=== PATIENT | male | born 1955 | race Caucasian/White ===

== ENCOUNTER 2018-01-03 22:27 | Inpatient (IN) ==
[2018-01-03] MEDS ORDERED: fentaNYL Citrate Inj 100 MCG/2 ML Ampul ONE (22:32)
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
[2018-01-03 22:50] LABS: Baso # (Auto) 0.1 th/mm3 (0.0-0.2); Baso % (Auto) 0.9 % (0.0-2.0); Eos # (Auto) 0.3 th/mm3 (0.0-0.4); Hematocrit 39.1 % (39.0-51.0); Hemoglobin 13.5 gm/dL (13.0-17.0); Lymph # (Auto) 3.6 th/mm3 (1.0-4.8); Mean Corpuscular HGB Conc 34.5 % (32.0-36.0); Mean Corpuscular Hemoglobin 30.8 pg (27.0-34.0); Mean Corpuscular Volume 89.3 fL (80.0-100.0); Mean Platelet Volume 8.5 fL (7.0-11.0); Mono # (Auto) 0.7 th/mm3 (0.0-0.9); Mono % (Auto) 8.8 % (0.0-8.0); Neut # (Auto) 3.4 th/mm3 (1.8-7.7); Neut % (Auto) 42.3 % (16.0-70.0); Platelet Count 167 th/mm3 (150-450); Red Blood Count 4.38 mil/mm3 (4.50-5.90); Red Cell Distribution Width 14.3 % (11.6-17.2); White Blood Count 8.1 th/mm3 (4.0-11.0)
[2018-01-03 23:04] LABS: Activated Partial Thrombo Time 27.8 sec (24.3-30.1); INR 1.1 Ratio; Prothrombin Time 11.5 sec (9.8-11.6)
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
[2018-01-03 23:19] LABS: Calcium 8.2 mg/dL (8.5-10.1); Carbon Dioxide 24.5 meq/L (21.0-32.0)
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
[2018-01-03] MEDS ORDERED: Morphine Inj 4 MG/ML Vial IV.PUSH PRN (23:51)
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
[2018-01-04] MEDS ORDERED: Chlorhexidine Gluconate 2% 1 Pack (2 Cloths) TOPICAL PRN (04:00)
[2018-01-04] MEDS ORDERED: Chlorhexidine Gluconate 2% 1 Pack (2 Cloths) TOPICAL SCH (04:00)
[2018-01-04] MEDS ORDERED: Methocarbamol 500 MG Tablet PO SCH (06:45)
[2018-01-04 08:25] LABS: Hematocrit 39.3 % (39.0-51.0); Hemoglobin 13.4 gm/dL (13.0-17.0); Mean Corpuscular HGB Conc 34.1 % (32.0-36.0); Mean Corpuscular Hemoglobin 30.8 pg (27.0-34.0); Mean Corpuscular Volume 90.2 fL (80.0-100.0); Mean Platelet Volume 8.2 fL (7.0-11.0); Platelet Count 142 th/mm3 (150-450); Red Blood Count 4.36 mil/mm3 (4.50-5.90); Red Cell Distribution Width 14.3 % (11.6-17.2); White Blood Count 5.6 th/mm3 (4.0-11.0)
[2018-01-04] MEDS ORDERED: Metoprolol Tartrate 50 MG Tablet PO SCH (09:00)
[2018-01-04] MEDS ORDERED: Docusate Sodium 100 MG Capsule PO SCH (09:00)
[2018-01-04] MEDS ORDERED: Senna/Docusate Sodium 8.6/50 MG Tablet PO SCH (09:00)
[2018-01-04 09:08] LABS: Calcium 8.1 mg/dL (8.5-10.1); Carbon Dioxide 24.9 meq/L (21.0-32.0); Potassium 3.6 meq/L (3.5-5.1)
[2018-01-04 09:14] LABS: Bilirubin,Urine Negative (Negative); Clarity,Urine Clear (Clear); Color,Urine Straw (Yellw/Straw); Glucose,Urine (UA) Negative (Negative); Leukocyte Esterase,Urine Negative (Negative); Nitrite,Urine Negative (Negative); Specific Gravity,Urine 1.016 (1.002-1.035)
[2018-01-04 09:19] LABS: Amphetamine Screen,Urine Neg (Neg); Barbiturate Screen,Urine Neg (Neg); Cannabinoid Screen,Urine Neg (Neg); Cocaine Screen,Urine Neg (Neg)
[2018-01-04 09:23] LABS: Opiate Screen,Urine Neg (Neg)
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
--- NOTE | 2018-01-04 14:58 | ECG ---
Date Performed: 01/03/2018 Time Performed: 23:55:59 PTAGE: 89 years EKG: Sinus rhythm NORMAL ECG NO PREVIOUS TRACING DOCTOR: Roni Turcios Interpretating Date/Time 01/04/2018 14:57:55
== END 2018-01-04 15:03 | disposition home or self-care (01) ==
LOC: NEPI 22:27 → NEDA 01-04 01:28 → EDBD 01-04 01:28 → N06 01-04 02:35
PROVIDERS: ADMIT Surgery Trauma Surgery; ATTEND Surgery Trauma Surgery